=== PATIENT | female | born 1995 | race Caucasian/White ===

== ENCOUNTER 2019-07-24 14:47 | Emergency (ER) | payer OTHER ==
[~2019-07-24] VITALS: Ht 160 cm; Wt 93.0 kg
[2019-07-24] MEDS ORDERED: LISINOPRIL2.5 MG PO (15:00)
[2019-07-24 16:13] LABS: URINE BILIRUBIN NEGATIVE (Negative); URINE BLOOD 1+ (Negative); URINE CLARITY CLEAR; URINE COLOR YELLOW; URINE GLUCOSE-RANDOM NEGATIVE (Negative); URINE KETONES NEGATIVE (Negative); URINE PROTEIN NEGATIVE (Negative); URINE SPECIFIC GRAVITY 1.025 (1.005-1.030)
[2019-07-24 16:14] LABS: URINE LEUKOCYTES-REFLEX NEGATIVE (Negative); URINE NITRITE-REFLEX NEGATIVE (Negative); URINE UROBILINOGEN 0.2 E.U./dl (0.2-1.0)
[2019-07-24 16:16] LABS: BACTERIA-REFLEX 1-9 Few /HPF (None Seen); SQUAMOUS >10 Many /LPF (0-3)
[2019-07-24 16:17] LABS: CASTS None Seen /LPF (None Seen); CRYSTALS None Seen /LPF (None Seen); MUCUS 0-3 Light strn/LPF (None Seen); URINE RBC 0-2 Rare /HPF (0-2); URINE WBC-REFLEX 0-5 Rare /HPF (0-5)
[2019-07-24 18:16] LABS: ABSOLUTE BASOPHILS 0.1 thou/uL (0.0-0.2); ABSOLUTE EOSINOPHILS 0.1 thou/uL (0.0-0.7); ABSOLUTE LYMPHOCYTES 2.7 thou/uL (0.8-5.3); ABSOLUTE MONOCYTES 0.9 thou/uL (0.0-1.2); ABSOLUTE NEUTROPHILS 2.7 thou/uL (1.6-8.1); EOSINOPHILS 1.9 %; HEMATOCRIT 37.5 % (37.0-47.0); HEMOGLOBIN 12.9 gm/dL (12.0-15.0); LYMPHOCYTES 42.2 %; MCHC 34.4 g/dL (28.0-37.0); MCV 90.1 fL (80.0-100.0); MONOCYTES 13.6 %; MPV 7.7 fl. (7.2-11.1); NUCLEATED RBCS 0 /100WBC; PLATELET COUNT* 206 thou/uL (150-400); POLYS 41.3 %; RBC 4.17 mil/uL (4.20-5.00); RDW-CV 13.7 % (10.5-14.5); WBC 6.5 thou/uL (4.0-11.0)
[2019-07-24 18:24] LABS: CALCIUM 8.8 mg/dL (8.5-10.1); CREATININE 0.9 mg/dL (0.6-1.3); POTASSIUM 3.3 mmol/L (3.5-5.1)
[2019-07-24 18:29] LABS: ALBUMIN 3.6 g/dL (3.4-5.0); TOTAL BILIRUBIN 0.2 mg/dL (<0.1-1.0); TOTAL PROTEIN 7.3 g/dL (6.4-8.2)
[2019-07-24] MEDS ORDERED: LISINOPRIL5 MG PO (19:21)
[2019-07-24 19:43] VITALS: BP 149/94
--- NOTE | 2019-07-25 13:57 | EKG ---
[place] [address] ELECTROCARDIOGRAM REPORT Name: TERA GALAVIZ Room: [facility]#: [id number] Admission: 07/24/19 Attend Phys: Discharge: 07/24/19 Date of : [birth year] Date of Service: 07/24/19 1748 Report #: [id number] THIS REPORT FOR: cc: Rolo Alvarado. Rolo Correa. Prabhjot Ray MD [facility] ~ THIS REPORT FOR: //name// [facility] ED Test Date: 2019-07-24 Test Time: 17:48:52 Pat Name: TERA GALAVIZ Department: Room: Gender: F [employer] Effects: LAVELL : 1995 Requested By: Marylu Randhawa Order Number: [id number] MD: Prabhjot Chadwick Measurements Intervals [place] Rate: 73 P: 10 NE: 163 QRS: 19 QRSD: 79 T: 6 QT: 355 QTc: 392 Interpretive Statements Sinus rhythm Borderline T wave abnormalities No previous ECG available for comparison Electronically Signed On 07-25-2019 9:57:10 [employer] by Prabhjot Chadwick [email or web address] <ELECTRONICALLY SIGNED> By: Prabhjot Chadwick MD, [facility] 07/25/19 0957 1748 1748 Prabhjot Chadwick MD, [facility] /EPI
== END 2019-07-24 19:46 | disposition home or self-care (01) ==
LOC: M.ERS 14:47
PROVIDERS: Nurse Practitioner Family
DX: I10 Essential (primary) hypertension (principal); R55 Syncope and collapse; Z90.89 Acquired absence of other organs; Z98.890 Other specified postprocedural states